=== PATIENT | female | born 1955 | race African-American/Black ===

== ENCOUNTER 2017-02-27 16:36 | Outpatient (CLI) | payer BC | END 2017-02-27 16:37 | disposition home or self-care (01) | LOC: BICMAMMO 16:36 | PROVIDERS: ATTEND Internal Medicine | DX: Z12.31 Encounter for screening mammogram for malignant neoplasm of breast (principal); R93.8 Abnormal findings on diagnostic imaging of other specified body structures; R59.0 Localized enlarged lymph nodes | CPT/HCPCS: 71046; 77063; 77067 ==

== ENCOUNTER 2017-12-10 13:31 | Emergency (ER) | payer BC ==
[~2017-12-10 13:31] MED LIST: Iopamidol 370 76% 100 ML VIAL ONE
[2017-12-10] MEDS ORDERED: Morphine 4 MG/ML Carpuject ONE (14:00)
[2017-12-10] MEDS ORDERED: Ondansetron PF 4 MG/2 ML Vial ONE (14:19)
[2017-12-10 14:25] LABS: #Basophils 0.1 thou/uL (0.0-0.2); #Eosinphils 0.1 thou/uL (0.0-0.7); #Lymphocytes 3.9 thou/uL (1.20-3.40); #Monocytes 0.6 thou/uL (0.11-0.59); #Neutrophils 5.7 thou/uL (1.40-6.50); %Basophils 0.9 % (0.0-1.0); %Eosinophils 1.2 % (0.0-10.0); %Lymphocytes 37.5 % (21.0-51.0); %Neutrophils 54.4 % (42.0-75.0); Hemoglobin 12.2 g/dL (12.0-16.0); Mean Corpuscular HGB CONC 30.7 g/dL (32.0-36.0); Mean Corpuscular Hemoglobin 27.2 pg (27.0-31.0); Mean Corpuscular Volume 88.5 fL (78.0-98.0); Mean Platelet Volume 9.6 fL (7.4-10.4); Platelet Count 201 thou/uL (130-400); RBC Distribution Width 12.9 % (11.5-14.5); White Blood Cell (WBC) Count 10.5 thou/uL (4.8-10.8)
[2017-12-10 14:34] LABS: Anion Gap 13 mmol/L (10-20); BUN (Urea Nitrogen) 12 mg/dL (9.8-20.1); Calc. Creatinine Clearance 0 mL/min (70-130); Calcium 9.7 mg/dL (7.8-10.44); Carbon Dioxide 25 mmol/L (23-31); Chloride 108 mmol/L (98-107); Estimated GFR-MDRD 82; Glucose 90 mg/dL (80-115); Potassium 3.6 mmol/L (3.5-5.1); Sodium 142 mmol/L (136-145)
[2017-12-10 14:38] LABS: Troponin I Less than 0.010 ng/mL (< 0.028)
[2017-12-10] MEDS ORDERED: Ketorolac Tromethamine 30 MG/ML VIAL ONE (15:25)
--- NOTE | 2017-12-10 15:33 | CT ---
CT ANGIO OF NECK PERFORMED WITH INTRAVENOUS CONTRAST ENHANCEMENT WITH 3D RECONSTRUCTIONS: HISTORY: The patient has a history of remote trauma and persistent pain in right shoulder now radiating to the right side of the neck with severe right-sided headache. This examination was done to evaluate for dissection. FINDINGS: The lung apices are clear of any infiltrative process. Slight nodularity to eh thyroid gland which w ould be better investigated with thyroid ultrasound. The parotid and submandibular gland regions eddi ear unremarkable. No significant jugular chain adenopathy. Parapharyngeal spaces are clear. The angiographic portion of this examination yielded a good examination. There is a separate origin of the left common carotid artery from the aortic arch. The right and left carotid systems are luly l in appearance. There is no evidence of any stenosis by NASCET criteria. There is no evidence for dissection. The vertebral arteries appear codominant. No stenosis. The visualized intracranial circulation is limited, but I do not see any abnormality. Review of osseous structures show anterior cervical fusion, from C5 to C7. At the C5-C6 level, there is marked left-sided foraminal narrowing and some mild right foraminal stenosis. There also appears to be some mild to moderate central canal stenosis, related to posterior osteophytic change. At the C6-C7 level, mild left-sided foraminal narrowing and mild canal stenosis is present. A slightly asy mmetric right paracentral osteophyte is seen at this level. IMPRESSION: Unremarkable CT angio of the neck. POS: [facility]
--- NOTE | 2017-12-10 15:34 | RAD ---
PORTABLE CHEST: HISTORY: Right-sided chest and shoulder pain. COMPARISON: A 08/18/2015 study. FINDINGS: Heart size is enlarged. Mediastinal structures are unremarkable. Lungs are clear of infiltrates. P ostoperative changes of the cervical spine are seen. IMPRESSION: Mild cardiomegaly. POS: [facility]
== END 2017-12-10 15:30 | disposition home or self-care (01) ==
LOC: SCSER 13:31
DX: M25.511 Pain in right shoulder (principal); I10 Essential (primary) hypertension
CPT/HCPCS: 70498; 71045; 80048; 82553; 84484; 85025; 93005; 96374; 96375; J1885; J2270; J2405

== ENCOUNTER 2018-05-16 08:36 | Outpatient (CLI) | payer BC ==
--- NOTE | 2018-05-16 09:23 | MMO ---
Bilateral MAMMO Bilat Screen [facility]. CLINICAL HISTORY: Patient is 62 years old and is seen for screening. The patient has no family history of breast cancer. The patient has no personal history of cancer. VIEWS: The views performed were: bilateral craniocaudal with tomosynthesis and bilateral mediolateral oblique with tomosynthesis. FILMS COMPARED: The present examination has been compared to prior imaging studies performed at [facility] on 02/27/2017, and at [facility] on 03/16/2004, 02/25/2014 and 02/04/2016. MAMMOGRAM FINDINGS: There are scattered fibroglandular densities. There are no suspicious masses, suspicious calcifications, or new areas of architectural distortion. IMPRESSION: THERE IS NO MAMMOGRAPHIC EVIDENCE OF MALIGNANCY. A ROUTINE FOLLOW-UP MAMMOGRAM IN 1 YEAR IS RECOMMENDED. THE RESULTS OF THIS EXAM WERE SENT TO THE PATIENT. ACR BI-RADS Category 1 - Negative MAMMOGRAPHY NOTE: 1. A negative mammogram report should not delay a biopsy if a dominant of clinically suspicious mass is present. 2. Approximately 10% to 15% of breast cancers are not detected by mammography. 3. Adenosis and dense breasts may obscure an underlying neoplasm.
== END 2018-05-16 08:37 | disposition home or self-care (01) ==
LOC: BICMAMMO 08:36
PROVIDERS: ATTEND Internal Medicine
DX: Z12.31 Encounter for screening mammogram for malignant neoplasm of breast (principal)
CPT/HCPCS: 77063; 77067

== ENCOUNTER 2019-05-29 19:42 | Emergency (ER) | payer BC ==
[2019-05-29] MEDS ORDERED: HYDROcodone/Acetaminophen 10/325 mg Tablet ONE (20:53)
--- NOTE | 2019-05-29 21:00 | ULT ---
RIGHT LOWER EXTREMITY VENOUS ULTRASOUND: 05/29/19 COMPARISON: None. HISTORY: Right lower extremity pain. TECHNIQUE: Multiplanar ramos scale and color Doppler images were obtained in a right lower extremity venous ultra sound. Spectral analysis of the Doppler waveforms were performed. IMPRESSION: The right common femoral vein, profunda femoral vein, superficial femoral vein, and popliteal vein ar e normal in appearance without visible thrombus. These vessels demonstrate normal compression, flow, and augmentation. The posterior tibial vein and greater saphenous vein are also patent. IMPRESSION: No evidence of DVT. POS: [facility]
== END 2019-05-29 22:00 | disposition home or self-care (01) ==
LOC: ERS 19:42
DX: M79.604 Pain in right leg (principal); I10 Essential (primary) hypertension

== ENCOUNTER 2019-06-04 15:39 | Outpatient (CLI) | payer BC ==
--- NOTE | 2019-06-05 08:28 | MMO ---
Bilateral MAMMO Bilat Screen [facility]. CLINICAL HISTORY: Patient is 63 years old and is seen for screening. The patient has no family history of breast cancer. The patient has no personal history of cancer. VIEWS: The views performed were: bilateral craniocaudal with tomosynthesis and bilateral mediolateral oblique with tomosynthesis. FILMS COMPARED: The present examination has been compared to prior imaging studies performed at [facility] on 02/27/2017 and 05/16/2018, and at [facility] on 02/25/2014 and 02/04/2016. This study has been interpreted with the assistance of computer-aided detection. MAMMOGRAM FINDINGS: There are scattered fibroglandular densities. There are no suspicious masses, suspicious calcifications, or new areas of architectural distortion. IMPRESSION: THERE IS NO MAMMOGRAPHIC EVIDENCE OF MALIGNANCY. A ROUTINE FOLLOW-UP MAMMOGRAM IN 1 YEAR IS RECOMMENDED. THE RESULTS OF THIS EXAM WERE SENT TO THE PATIENT. ACR BI-RADS Category 1 - Negative MAMMOGRAPHY NOTE: 1. A negative mammogram report should not delay a biopsy if a dominant of clinically suspicious mass is present. 2. Approximately 10% to 15% of breast cancers are not detected by mammography. 3. Adenosis and dense breasts may obscure an underlying neoplasm. Reported by: MARIOLA GARCIA MD Electonically Signed: [id number]
== END 2019-06-04 15:40 | disposition home or self-care (01) ==
LOC: BICMAMMO 15:39
PROVIDERS: ATTEND Internal Medicine
DX: Z12.31 Encounter for screening mammogram for malignant neoplasm of breast (principal)
CPT/HCPCS: 77063; 77067

== ENCOUNTER 2019-07-09 12:45 | Outpatient (CLI) | payer BC ==
--- NOTE | 2019-07-09 15:27 | MRI ---
MRI LUMBAR SPINE WITHOUT CONTRAST: Date: 07/09/2019 INDICATION: History of lumbar spondylosis and right-sided back pain with extension into the right hip. COMPARISON: None. FINDINGS: There is Grade I anterolisthesis of L4 on L5. Conus is seen to terminate at approximately L2. Visuali zed retroperitoneum and paravertebral soft tissues appear within normal limits. At L5-S1, there is a broad based bulge with mild to moderate facet osteoarthrosis, but no appreciable central canal or neural foraminal narrowing. At L4-5, there is advanced facet osteoarthrosis and a broad based bulge inducing moderate central can al narrowing without appreciable neural foraminal narrowing. At L3-4, there is a broad based bulge with facet osteoarthrosis inducing mild central canal narrowing . At L2-3, there is a broad based bulge with facet hypertrophy inducing moderate central canal narrowin g, but no appreciable neural foraminal narrowing. At L1-L2, there is a mild broad based bulge, but no appreciable central canal or neural foraminal sallie rowing. There is a bony hemangioma within the left aspect of L1. At T12-L1, there is a mild broad based bulge, but no appreciable central canal or neural foraminal na rrowing. IMPRESSION: Moderate central canal narrowing at L2-3 and L4-5. POS: [facility]
--- NOTE | 2019-07-09 15:50 | MRI ---
MRI OF THE RIGHT HIP WITHOUT CONTRAST: 07/09/19 INDICATION: History of primary osteoarthrosis of the right hip with right hip pain. COMPARISON: None. FINDINGS: There is mild tendinosis of the right gluteus minimus and medius with mild subgluteus medius and subg luteus minimus trochanteric bursitis. No iliopsoas bursitis is evident. There is mild to moderate ost eoarthrosis involving the right hip with subchondral cyst-like abnormalities involving the anterior s uperior acetabulum. Ligamentum teres is intact. No definite paralabral cyst or full thickness labral tear is grossly evident. No enlarged lymph nodes are present. The visualized intrapelvic contents are unremarkable appearing. The visualized sciatic nerve is within normal limits. Right hamstring origin appears within normal limits. IMPRESSION: 1. Mild right gluteus minimus and medius tendinosis and mild trochanteric bursitis. 2. Mild to moderate right hip osteoarthrosis. POS: [facility]
== END 2019-07-09 12:46 | disposition home or self-care (01) ==
LOC: BICMRI 12:45
PROVIDERS: ATTEND Orthopaedic Surgery
DX: M43.06 Spondylolysis, lumbar region (principal); M16.11 Unilateral primary osteoarthritis, right hip; M76.01 Gluteal tendinitis, right hip; M70.61 Trochanteric bursitis, right hip; M48.061 Spinal stenosis, lumbar region without neurogenic claudication
CPT/HCPCS: 72148

== ENCOUNTER 2019-07-14 16:25 | Emergency (ER) | payer BC, OTHER ==
[2019-07-15 14:06] LABS: SARS-CoV-2 MS2 Positive; SARS-CoV-2 N Gene Positive; SARS-CoV-2 S Gene Positive; SARS-CoV-2 orf1ab Positive
== END 2019-07-14 16:27 | disposition home or self-care (01) ==
LOC: ERS 16:25
DX: U07.1 COVID-19 (principal); R51 Headache; J34.89 Other specified disorders of nose and nasal sinuses; I10 Essential (primary) hypertension
CPT/HCPCS: 87635; 99283; U0003

== ENCOUNTER 2019-07-22 17:56 | Emergency (ER) | payer BC, OTHER ==
[2019-07-22] MEDS ORDERED: Acetaminophen 500 MG TAB ONE (18:27)
--- NOTE | 2019-07-22 19:13 | RAD ---
Chest AP view INDICATION: Cough with positive Covid testing COMPARISON: December 10, 2017 FINDINGS: Lungs: The lungs are clear Cardiac silhouette: Stable [id number] cardiomegaly Pulmonary vasculature: Normal Pleural spaces: No pleural effusion or pneumothorax is demonstrated. Upper abdomen: No abnormality seen. Osseous structures: Stable ACDF of the lower cervical spine. Additional findings: None. IMPRESSION: No acute cardiopulmonary abnormality.
[2019-07-22 19:24] LABS: #Basophils 0.1 thou/uL (0.0-0.2); #Lymphocytes 1.8 thou/uL (1.20-3.40); #Monocytes 0.3 thou/uL (0.11-0.59); #Neutrophils 4.7 thou/uL (1.40-6.50); %Basophils 1.5 % (0.0-1.0); %Eosinophils 0.1 % (0.0-10.0); %Lymphocytes 25.7 % (21.0-51.0); %Monocytes 4.7 % (0.0-10.0); Hemoglobin 12.5 g/dL (12.0-16.0); Mean Corpuscular HGB CONC 32.6 g/dL (32.0-36.0); Mean Corpuscular Hemoglobin 28.9 pg (27.0-31.0); Mean Corpuscular Volume 88.5 fL (78.0-98.0); Platelet Count 144 thou/uL (130-400); RBC Distribution Width 12.3 % (11.5-14.5); Red Blood Cell (RBC) Count 4.33 mill/uL (4.20-5.40); White Blood Cell (WBC) Count 6.9 thou/uL (4.8-10.8)
[2019-07-22 19:50] LABS: ALT (SGPT) 30 U/L (8-55); AST (SGOT) 33 U/L (5-34); Albumin 3.8 g/dL (3.4-4.8); Alkaline Phosphatase 89 U/L (40-110); Anion Gap 12 mmol/L (10-20); BUN (Urea Nitrogen) 8 mg/dL (9.8-20.1); Bilirubin, Total 0.2 mg/dL (0.2-1.2); Calc. Creatinine Clearance 0 mL/min (70-130); Calcium 8.8 mg/dL (7.8-10.44); Carbon Dioxide 26 mmol/L (23-31); Chloride 104 mmol/L (98-107); Estimated GFR-MDRD 90; Globulin 3.6 g/dL (2.4-3.5); Glucose 122 mg/dL (80-115); Potassium 3.5 mmol/L (3.5-5.1); Protein, Total 7.4 g/dL (6.0-8.3); Sodium 138 mmol/L (136-145)
[2019-07-22] MEDS ORDERED: Ibuprofen 800 MG TAB ONE (19:55)
[2019-07-22] MEDS ORDERED: Albuterol 200 PUFF (6.7GM INHALER) INH SCH (20:45)
== END 2019-07-22 21:28 | disposition home or self-care (01) ==
LOC: ERS 17:56
DX: U07.1 COVID-19 (principal); I10 Essential (primary) hypertension; Z79.899 Other long term (current) drug therapy
CPT/HCPCS: 71045; 80053; 85025; 96360; 96361

== ENCOUNTER 2020-02-19 11:08 | Outpatient (CLI) | payer MEDICARE ==
--- NOTE | 2020-02-19 11:46 | RAD ---
EXAM: XR Lumbar Spine Bending Min 4V PROVIDED CLINICAL HISTORY: Low back pain COMPARISON: 06/13/2019 FINDINGS: Again noted are 5 nonrib-bearing lumbar-type vertebral bodies. Mild right convex curvature of the lum bar spine is present. There are scattered osteophytes again seen within the lumbar spine. Slight grade 1 anterolisthesis of L4 on L5 is again present. The vertebral body heights are within normal li mits. Facet hypertrophic changes are seen in the lower lumbar spine. No fracture is seen. No abnormal translational motion is seen between the flexion and extension views. Partial visualization left total hip prosthesis is again present. IMPRESSION: 1. Degenerative changes lumbar spine with slight grade 1 anterolisthesis of L4 on L5, unchanged from prior study. 2. Mild right convex scoliosis lumbar spine.
== END 2020-02-19 11:09 | disposition home or self-care (01) ==
LOC: BICRAD 11:08
PROVIDERS: ATTEND Neurological Surgery
DX: M54.5 Low back pain (principal); M47.816 Spondylosis without myelopathy or radiculopathy, lumbar region; M43.16 Spondylolisthesis, lumbar region; M41.9 Scoliosis, unspecified
CPT/HCPCS: 72120

== ENCOUNTER 2020-04-30 11:34 | Outpatient (CLI) | payer MEDICARE | END 2020-04-30 11:35 | disposition home or self-care (01) | LOC: BICRAD 11:34 | PROVIDERS: ATTEND Nurse Practitioner Family | DX: M54.6 Pain in thoracic spine (principal); M47.814 Spondylosis without myelopathy or radiculopathy, thoracic region | CPT/HCPCS: 72072 ==

== ENCOUNTER 2020-05-15 10:22 | Outpatient (CLI) | payer MEDICARE | END 2020-05-15 10:23 | disposition home or self-care (01) | LOC: TBSIIMAG 10:22 | PROVIDERS: ATTEND Nurse Practitioner Family | DX: M51.14 Intervertebral disc disorders with radiculopathy, thoracic region (principal); M51.25 Other intervertebral disc displacement, thoracolumbar region | CPT/HCPCS: 72146 ==

== ENCOUNTER 2025-01-22 05:34 | Emergency (ER) | payer MEDICARE ==
[2025-01-22 06:25] LABS: #Basophils 0.03 10x3/uL (0.0-0.2); #Eosinophils 0.08 10x3/uL (0.0-0.7); #Monocytes 0.63 10x3/uL (0.11-0.59); #Neutrophils 6.66 10x3/uL (1.40-6.50); %Basophils 0.3 % (0.0-1.0); %Eosinophils 0.7 % (0.0-10.0); %Lymphocytes 30.9 % (21.0-51.0); %Monocytes 5.9 % (0.0-10.0); %Neutrophils 61.9 % (42.0-75.0); Hematocrit 37.3 % (36.0-47.0); Hemoglobin 12.1 g/dL (12.0-16.0); Mean Corpuscular Hemoglobin 28.5 pg (27.0-31.0); Mean Corpuscular Volume 87.8 fL (78.0-98.0); Platelet Count 253 10x3/uL (130-400); Red Blood Cell (RBC) Count 4.25 mill/uL (4.20-5.40); White Blood Cell (WBC) Count 10.76 10x3/uL (4.8-10.8)
[2025-01-22] MEDS ORDERED: Ondansetron PF 4 MG/2 ML Vial ONE (06:29)
[2025-01-22 06:40] LABS: ALT (SGPT) 21 U/L (Less than 34); AST (SGOT) 33 U/L (11-34); Albumin 4.0 g/dL (3.1-4.5); Alkaline Phosphatase 97 U/L (40-110); Anion Gap 16 mmol/L (10-20); BUN (Urea Nitrogen) 18 mg/dL (9.8-20.1); Bilirubin, Total 0.4 mg/dL (0.3-1.2); Calc. Creatinine Clearance 0 mL/min (70-130); Calcium 9.2 mg/dL (7.8-10.44); Carbon Dioxide 24 mmol/L (23-31); Chloride 107 mmol/L (98-107); Globulin 3.8 g/dL (2.4-3.5); Glucose 141 mg/dL (80-115); Lipase 11 U/L (8-78); Potassium 4.1 mmol/L (3.5-5.1); Sodium 143 mmol/L (136-145)
[2025-01-22] MEDS ORDERED: Iopamidol 370 76% 100 ML VIAL ONE (09:47)
== END 2025-01-22 08:03 | disposition home or self-care (01) ==
LOC: ERS 05:34
DX: R10.30 Lower abdominal pain, unspecified (principal); I10 Essential (primary) hypertension
CPT/HCPCS: 74177; 80053; 83690; 84484; 85025; 93005; J2270; J2405; 96374; 96375; Q9967